=== PATIENT | female | born 1980 | race Caucasian/White ===

== ENCOUNTER 2019-05-07 12:41 | Emergency (ER) | payer OTHER ==
[~2019-05-07] VITALS: Ht 170.2 cm; Wt 94.3 kg
[~2019-05-07 12:41] MED LIST: ACEASPCAF; ALBU90OI INH; BENZ100A PO; CLON.1 PO; COLC.6 PO; CYCL10 PO; Excedrin Extra1 EACH PO; FLUO20; FURO20 PO; GABA600 PO; HYDACE5; HYDACE5 PO; HYDCHL25 PO; IBUP600 PO; IBUP800 PO; JOLESSA; NAPR500 PO; POTCHL10ER PO; PRED20 PO; PROM25 PO; QUET100 PO; RANI150 PO; RXNAPNA550 PO; RXOXYACE PO; RXPROACE PO; TRAM50 PO; VENL37.5 PO
== END 2019-05-07 14:14 | disposition home or self-care (01) ==
LOC: ER 12:41
DX: S60.811A Abrasion of right wrist, initial encounter (principal); M25.571 Pain in right ankle and joints of right foot; G89.29 Other chronic pain; W19.XXXA Unspecified fall, initial encounter; Z88.8 Allergy status to other drugs, medicaments and biological substances; Z91.030 Bee allergy status; I10 Essential (primary) hypertension; F17.200 Nicotine dependence, unspecified, uncomplicated
CPT/HCPCS: 73110; 73610; 99283-25